=== PATIENT | female | born 1995 | race Caucasian/White ===

== ENCOUNTER 2022-03-10 11:49 | Emergency (ER) | payer MEDICAID ==
[2022-03-10 13:28] LABS: CORONAVIRUS COVID-19 NAA NEGATIVE (NEGATIVE); INFLUENZA A NAA NEGATIVE (NEGATIVE); INFLUENZA B NAA NEGATIVE (NEGATIVE); RESPIRATORY SYNCYTIAL VIR NAA NEGATIVE (NEGATIVE)
[2022-03-10] MEDS ORDERED: Ketorolac 60 MG/2 ML SDV IM ONE (14:20)
== END 2022-03-10 14:18 | disposition home or self-care (01) ==
LOC: MW.ED 11:49
DX: J18.9 Pneumonia, unspecified organism (principal); J45.909 Unspecified asthma, uncomplicated; Z20.822 Contact with and (suspected) exposure to COVID-19
CPT/HCPCS: 0241U; 36415; 71046; 84703; 96372; 99283; J1885

== ENCOUNTER 2022-07-26 03:59 | Emergency (ER) | payer MEDICAID ==
[2022-07-26] MEDS ORDERED: Cephalexin 500 MG Cap PO ONE (04:01)
[2022-07-26] MEDS ORDERED: Sulfamethoxazole/Trimethoprim 800-160 MG Tab PO ONE (04:02)
== END 2022-07-26 04:53 | disposition home or self-care (01) ==
LOC: MW.ED 03:59
DX: A49.02 Methicillin resistant Staphylococcus aureus infection, unspecified site (principal); J45.909 Unspecified asthma, uncomplicated; Z79.899 Other long term (current) drug therapy; Z88.1 Allergy status to other antibiotic agents
CPT/HCPCS: 99282; A9270

== ENCOUNTER 2023-01-29 13:00 | Emergency (ER) | payer SELFPAY ==
[2023-01-29 14:37] LABS: BASOPHILS ABSOLUTE AUTO 0.01 K/uL (0.00-0.20); BASOPHILS PERCENT AUTO 0.1 % (0.0-1.0); EOSINOPHILS ABSOLUTE AUTO 0.05 K/uL (0.00-0.45); EOSINOPHILS PERCENT AUTO 0.7 % (0.0-6.0); HEMATOCRIT 38.2 % (37.0-47.0); HEMOGLOBIN 12.8 g/dL (12.0-16.0); IMMATURE GRAN ABSOLUTE AUTO 0.02 K/uL (0.00-0.05); IMMATURE GRAN PERCENT AUTO 0.3 % (0.0-0.4); LYMPHOCYTES ABSOLUTE AUTO 1.38 K/uL (1.00-4.80); MEAN CORPUSCULAR HEMOGLOBIN 27.9 pg (28.0-32.0); MEAN CORPUSCULAR HGB CONC 33.5 g/dL (32.0-36.0); MEAN CORPUSCULAR VOLUME 83.4 fL (83.0-99.0); MEAN PLATELET VOLUME 10.2 fL (9.4-12.3); MONOCYTES ABSOLUTE AUTO 0.41 K/uL (0.00-0.80); MONOCYTES PERCENT AUTO 5.7 % (0.0-8.0); NEUTROPHILS ABSOLUTE AUTO 5.38 K/uL (1.80-7.70); NEUTROPHILS PERCENT AUTO 74.2 % (41.0-71.0); PLATELET COUNT,PLT 161 K/uL (150-400); RED BLOOD CELL COUNT 4.58 M/uL (4.10-5.30); WHITE BLOOD CELL COUNT,WBC 7.25 K/uL (3.9-11.3)
[2023-01-29 15:03] LABS: A/G RATIO 1.2 (0.9-1.6); ALBUMIN 3.9 g/dL (3.4-5.0); BILIRUBIN TOTAL 0.5 mg/dL (0.2-1.0); CALCIUM 8.6 mg/dL (8.5-10.1); CARBON DIOXIDE,CO2 28.8 mmol/L (21.0-32.0); CREATININE 0.6 mg/dL (0.6-1.0); EST CRCL DRUG DOSING (CG) 121.02 mL/min; PROTEIN TOTAL,TP 7.2 g/dL (6.4-8.2)
== END 2023-01-29 15:17 | disposition home or self-care (01) ==
LOC: MW.ED 13:00
DX: J06.9 Acute upper respiratory infection, unspecified (principal); Z02.89 Encounter for other administrative examinations; F17.210 Nicotine dependence, cigarettes, uncomplicated; Z88.1 Allergy status to other antibiotic agents
CPT/HCPCS: 36415; 71045; 71045-26; 80053; 85025; 99283; 99285

== ENCOUNTER 2023-03-11 12:52 | Emergency (ER) | payer SELFPAY ==
[2023-03-11] MEDS ORDERED: Sulfamethoxazole/Trimethoprim 800-160 MG Tab PO ONE (14:28)
[2023-03-11] MEDS ORDERED: Acetaminophen 500 MG Tab PO ONE (14:52)
== END 2023-03-11 15:34 | disposition home or self-care (01) ==
LOC: MW.ED 12:52
DX: L08.9 Local infection of the skin and subcutaneous tissue, unspecified (principal); F15.10 Other stimulant abuse, uncomplicated; J45.909 Unspecified asthma, uncomplicated; Z88.1 Allergy status to other antibiotic agents
CPT/HCPCS: 71045; 99285; A9270; 93005

== ENCOUNTER 2023-03-30 16:14 | Emergency (ER) | payer SELFPAY | END 2023-03-30 18:30 | LOC: MW.ED 16:14 | DX: Z02.89 Encounter for other administrative examinations (principal); Z76.0 Encounter for issue of repeat prescription; Z88.1 Allergy status to other antibiotic agents | CPT/HCPCS: 99283 ==

== ENCOUNTER 2023-05-03 09:14 | Emergency (ER) | payer SELFPAY ==
[2023-05-03] MEDS: oxyCODONE 5 MG Tab PO STA (10:59)
[2023-05-03] MEDS: Lidocaine 1% 5 ML VIAL INJECT STA (11:00)
[2023-05-03] MEDS: Ibuprofen 800 MG Tab PO STA (11:00)
[2023-05-03] MEDS: Acetaminophen 500 MG Tab PO SCH (11:03)
== END 2023-05-03 12:16 | disposition home or self-care (01) ==
LOC: MW.ED 09:14
DX: S81.011A Laceration without foreign body, right knee, initial encounter (principal); I25.2 Old myocardial infarction; Z79.899 Other long term (current) drug therapy; Z88.1 Allergy status to other antibiotic agents; V18.0XXA Pedal cycle driver injured in noncollision transport accident in nontraffic accident, initial encounter
CPT/HCPCS: 12001; 73130; 73562; 99284; A9270; 99283; J3490